=== PATIENT | female | born 1970 | race Caucasian/White ===

== ENCOUNTER 2025-03-22 17:26 | Emergency (ER) | payer MEDICAID ==
[2025-03-22] MEDS: Diphtheria,Pertussis(Acell),Tetanus Vaccine 0.5 ML Syringe IM ONE (18:05)
== END 2025-03-22 18:45 | disposition home or self-care (01) ==
LOC: JD.ED 17:26
DX: S01.01XA Laceration without foreign body of scalp, initial encounter (principal); Z23 Encounter for immunization; Z88.0 Allergy status to penicillin; W25.XXXA Contact with sharp glass, initial encounter; Y93.89 Activity, other specified
CPT/HCPCS: 12001; 90471; 90715; 99282-25